=== PATIENT | male | born 1985 | race Caucasian/White ===

== ENCOUNTER 2024-07-03 05:06 | Emergency (ER) | payer OTHER ==
[~2024-07-03] VITALS: Ht 172.7 cm; Wt 77.0 kg
[2024-07-03 05:09] VITALS: O2SAT 100
[2024-07-03 06:01] VITALS: BP 120/86; PULSE 90; RESP 16; TEMP 37.05852; O2SAT 100
== END 2024-07-03 06:02 | disposition home or self-care (01) ==
LOC: ER 05:06
DX: E10.649 Type 1 diabetes mellitus with hypoglycemia without coma (principal); Z79.4 Long term (current) use of insulin
CPT/HCPCS: 82962; 99283